=== PATIENT | female | born 1975 | race Caucasian/White ===

== ENCOUNTER 2019-05-26 22:04 | Emergency (ER) | payer MEDICARE, MEDICAID ==
[~2019-05-26] VITALS: Ht 162.6 cm; Wt 77.0 kg
[2019-05-26] MEDS ORDERED: VENTOLIN HFA18 GM INH (23:53)
[2019-05-26] MEDS ORDERED: BENZ100C PO (23:53)
[2019-05-26] MEDS ORDERED: AZIT250T PO (23:53)
--- NOTE | 2019-05-26 23:53 | PHYS DOC ---
Past Medical History Past Medical History: Asthma, Diabetes-Type I Past Surgical History: Hysterectomy, Other Smoking Status: Former Smoker Alcohol Use: Rarely Social History Narrative: cbd Adult General Chief Complaint Chief Complaint: COUGH HPI HPI Patient is a 44 year old non-smoking female with history of asthma, diabetes mellitus, PTSD and anxiety who presents with complaining of cough. Patient complaining of nonproductive cough for more than 1 month that usually happens at night and because pain in her back and throat with shortness of breath. Patient planing of subjective fever. Patient states she just moved to [place] from [place] and got Medicaid insurance and because of not having a primary care physician decided to come to ER. Review of Systems Review of Systems Constitutional: Denies fever or chills [] Eyes: Denies change in visual acuity, redness, or eye pain [] HENT: Denies nasal congestion, report sore throat [] Respiratory: Reports cough and shortness of breath Cardiovascular: No additional information not addressed in HPI [] GI: Denies abdominal pain, nausea, vomiting, bloody stools or diarrhea [] : Denies dysuria or hematuria [] Musculoskeletal: Denies back pain or joint pain [] Integument: Denies rash or skin lesions [] Neurologic: Denies headache, focal weakness or sensory changes [] Endocrine: Denies polyuria or polydipsia [] All other systems were reviewed and found to be within normal limits, except as documented in this note. Physical Exam Physical Exam Constitutional: Well developed, well nourished, mild distress, non-toxic appearance. [] HENT: Normocephalic, atraumatic, bilateral external ears normal, oropharynx moist, no oral exudates, nose normal. [] Eyes: PERRLA, EOMI, conjunctiva normal, no discharge. [] Neck: Normal range of motion, no tenderness, supple, no stridor. [] Cardiovascular:Heart rate regular rhythm, no murmur [] Lungs & Thorax: Bilateral breath sounds clear to auscultation [] Abdomen: Bowel sounds normal, soft, no tenderness, no masses, no pulsatile masses. [] Skin: Warm, dry, no erythema, no rash. [] Back: No tenderness, no CVA tenderness. [] Extremities: No tenderness, no cyanosis, no clubbing, ROM intact, no edema. [] Neurologic: Alert and oriented X 3, normal motor function, normal sensory function, no focal deficits noted. [] Psychologic: Affect anxious , judgement normal, mood normal. [] Current Patient Data Vital Signs Vital Signs Date Time Temp Pulse Resp B/P (MAP) Pulse Ox O2 Delivery O2 Flow Rate FiO2 05/26/19 22:58 98.4 84 14 136/92 (107) 98 Room Air 98.4 EKG EKG [] Radiology/Procedures Radiology/Procedures [] Course & Med Decision Making Course & Med Decision Making Evaluation of patient showed 44-year-old female patient with history of asthma and chronic cough for more than 1 month. Patient had unremarkable physical exam and stable vital signs without hypoxia. Patient was told to follow-up with the primary care physician and list of primary care physician was provided. I've spoken with the patient and/or caregivers. I've explained the patient's condition, diagnosis and treatment plan based on information available to me at this time. I've answered the patient's and/or caregivers questions and addressed any concerns. The patient and/or caregivers have a good understanding the carmencita gaitan's diagnosis, condition and treatment plan as can be expected at this point. Vital signs have been stabilized. The patient's condition is stable for discharge from the emergency department. The patient will pursue further outpatient evaluation with her primary care provider or other designated consulting physician as outlined in the discharge instructions. Patient and/or caregivers are agreeable to this plan of care and follow-up instructions have been explained in detail. The patient and/or caregivers have received these instructions in written format and expressed understanding of these discharge instructions. The patient and her caregivers are aware that if any significant change in condition or worsening of symptoms should prompt him to immediately return to this of the closest emergency department. If an emergent department is not readily available I would encourage him to call 911. Yaw Disclaimer Dragon Disclaimer This electronic medical record was generated, in whole or in part, using a voice recognition dictation system. Departure Departure Impression: Primary Impression: Asthma exacerbation Disposition: HOME, SELF-CARE (At 2340) Condition: STABLE Referrals: NO PCP (PCP) Patient Instructions: Asthma Attacks, Prevention, Asthma, Adult Additional Instructions: Drink plenty of liquids Follow-up with your primary care physician in 3-5 days Return to ER if not getting better Thank you for visiting [facility]. We appreciate you trusting us with your care. If any additional problems come up don't hesitate to return to visit us. Please follow up with your primary care provider so they can plan additional care if needed and know about the problem that you had. If symptoms worsen come back to the Emergency Department. Any concerning symptoms that start such as chest pain, shortness of air, weakness or numbness on one side of the body, running high fevers or any other concerning symptoms return to the ER. Scripts Albuterol Sulfate (VENTOLIN HFA INHALER) 18 Gm Hfa.aer.ad 2 PUFF INH QID for FOR ASTHMA, #1 INHALER 0 Refills Prov: JEROME MAYEN MD 05/26/19 Azithromycin (ZITHROMAX) 250 Mg Tablet 250 MG PO as directed for ANTI-BIOTIC, #6 TAB 0 Refills Take 2 PO x 1 days Then take 1 PO q 24 hour for the next 4 days Prov: JEROME MAYEN MD 05/26/19 Benzonatate (TESSALON PERLE) 100 Mg Capsule 1 CAP PO TID for cough, #21 CAP Prov: JEROME MAYEN MD 05/26/19 Problem Qualifiers Primary Impression: Asthma exacerbation Asthma severity: mild Asthma persistence: intermittent Qualified Codes: J45.21 - Mild intermittent asthma with (acute) exacerbation JEROME MAYEN MD May 26, 2019 23:53
[2019-05-27 00:15] VITALS: BP 104/68
== END 2019-05-27 00:39 | disposition home or self-care (01) ==
LOC: ER 22:04
DX: J45.21 Mild intermittent asthma with (acute) exacerbation (principal); R05 Cough; R07.0 Pain in throat; E10.9 Type 1 diabetes mellitus without complications; J45.909 Unspecified asthma, uncomplicated; Z90.710 Acquired absence of both cervix and uterus; Z98.890 Other specified postprocedural states; Z87.891 Personal history of nicotine dependence
CPT/HCPCS: 99283

== ENCOUNTER 2020-07-17 07:59 | Emergency (ER) | payer MEDICARE, MEDICAID ==
[~2020-07-17] VITALS: Ht 162.6 cm; Wt 81.8 kg
[~2020-07-17 07:59] MED LIST: AZIT250T PO; BENZ100C PO; VENTOLIN HFA18 GM INH
[2020-07-17 08:30] LABS: BILIRUBIN,URINE NEGATIVE (NEG); CLARITY,URINE CLEAR; COLOR,URINE YELLOW; NITRITE,URINE NEGATIVE (NEG); PROTEIN,URINE NEGATIVE (NEG-TRACE); UROBILINOGEN,URINE 0.2 mg/dL (0.2 mg/dL)
[2020-07-17 08:50] LABS: BACTERIA,URINE 0 /HPF (0-FEW); RBC,URINE 0 /HPF (0-2); WBC,URINE 0 /HPF (0-4)
[2020-07-17] MEDS ORDERED: IV NORMAL SALINE 1000ML BAG 1,000 ML IV ONE (09:00)
--- NOTE | 2020-07-17 09:03 | PHYS DOC ---
Past Medical History Past Medical History: Asthma, Diabetes-Type I Past Surgical History: Hysterectomy, Other Smoking Status: Former Smoker Alcohol Use: Rarely General Adult EDM: Chief Complaint: OTHER COMPLAINTS HPI: HPI: 45 yo female past medical history significant for insulin-dependent diabetes, asthma, ulcerative colitis and former tobacco use, presents the ED with multiple complaints stating " something systemic is going on, I am stressed out about my health." Reports history of Covid twice, wrist recent was in March of this year. Complains of left rib pain and left flank pain that has been present for the past 2 weeks. States 2 weeks ago she thought she had a stroke or heart attack because of a left-sided headache that radiated to both clavicles. Patient states her entire body hurts and she is surprised she is c ompliant with her insulin. Primary care physician is Dr. Leticia Giordano. Past surgical history of hysterectomy. Patient also reports she has had.. Is not on any medications for her ulcerative colitis-states Leticia Dewitt took her off of them. Denies any drug use including cocaine, methamphetamine or alcohol intake. Review of Systems: Review of Systems: Constitutional: Denies fever or chills. [] Eyes: Denies change in visual acuity. [] HENT: Denies nasal congestion or sore throat. [] Respiratory: Denies cough or shortness of breath or increased work of breathing Cardiovascular: Denies chest pain or edema or hemoptysis GI: Denies abdominal pain, nausea, vomiting, melena, hematochezia or hematemesis : Denies dysuria or vaginal bleeding or saddle anesthesia Musculoskeletal: Denies midline back pain or joint pain or leg swelling Integument: Denies rash diaphoresis Neurologic: Denies neck pain, focal weakness or sensory changes. [] Endocrine: Denies polyuria or polydipsia. [] Lymphatic: Denies swollen glands. [] Psychiatric: Denies depression or anxiety. [] Heart Score: C/O Chest Pain: No HEART Score for Chest Pain: HEART Score for Chest Pain Response (Comments) Value History Slighlty/Non-Suspicious 0 ECG Normal 0 Age >45 - < 65 1 Risk Factors 1 or 2 Risk Factors 1 Troponin < Normal Limit 0 Total 2 Risk Factors: Risk Factors: DM, Current or recent (<one month) smoker, HTN, HLP, family history of CAD, obesity. Risk Scores: Score 0 - 3: 2.5% MACE over next 6 weeks - Discharge Home Score 4 - 6: 20.3% MACE over next 6 weeks - Admit for Clinical Observation Score 7 - 10: 72.7% MACE over next 6 weeks - Early Invasive Strategies Allergies: Allergies: Allergies Coded Allergies Type Severity Reaction Last Updated Verified mold Adverse Reaction Intermediate N/V. "AFFECTS LUNGS" 07/17/20 Yes soy Adverse Reaction Intermediate MALAISE, MIGRAINE, N\\V 07/17/20 Yes Physical Exam: PE: Constitutional: Well developed, well nourished, no acute distress, non-toxic appearance, unkept appearance HENT: Normocephalic, atraumatic, dry mucous membranes, no pharyngeal erythema or exudates, no facial droop, clear speech Eyes: grace, EOMI, conjunctiva normal, no discharge. Neck: Normal range of motion, supple, Cardiovascular: S1/2 present, tachycardic at 103 Lungs & Thorax: Speaking in full sentences, bilateral equal chest rise, no tachypnea or increased work of breathing, "rib pain" is located over left lower anterior ribs - no ttp, Abdomen: soft, no tenderness, no rigidity or guarding Skin: Warm, dry, no erythema, no rash. [] Back: No midline tenderness, left CVA tenderness. [] Extremities: No tenderness, no cyanosis, no lower extremity edema Neurologic: Alert and oriented X 3, normal motor function, normal sensory function, no focal deficits noted. [] Psychologic: mood -very anxious with rapid speech, reasonable judgment Current Patient Data: Labs: Laboratory Tests Test 07/17/20 08:10 07/17/20 08:31 Urine Collection Type Unknown Urine Color Yellow Urine Clarity Clear Urine pH 6.0 (<5.0-8.0) Urine Specific [place] >=1.030 (1.000-1.030) Urine Protein Negative mg/dL (NEG-TRACE) Urine Glucose (UA) >=1000 mg/dL (NEG) Urine Ketones (Stick) >=80 mg/dL (NEG) Urine Blood Negative (NEG) Urine Nitrite Negative (NEG) Urine Bilirubin Negative (NEG) Urine Urobilinogen Dipstick 0.2 mg/dL (0.2 mg/dL) Urine Leukocyte Esterase Negative (NEG) Urine RBC 0 /HPF (0-2) Urine WBC 0 /HPF (0-4) Urine Squamous Epithelial Cells Few /LPF Urine Bacteria 0 /HPF (0-FEW) Glucose (Fingerstick) 259 mg/dL (70-99) H EKG: EKG: Sinus rhythm 97 bpm, no axis deviation, Q3, T3, no S in 1, normal intervals, no ST elevations or ST depressions Radiology/Procedures: Radiology/Procedures: IMAGING REPORT Signed PATIENT: XIOMY CESPEDES ACCOUNT: [id number] : 1975 LOCATION: ER AGE: 45 SEX: F EXAM STATUS: REG ER ORD. PHYSICIAN: SLICK MCKAY DO REASON: left rib pain PROCEDURE: CHEST AP ONLY EXAM: Chest, single view. HISTORY: Left rib pain. COMPARISON: None. FINDINGS: A frontal view of the chest is obtained. There is no infiltrate, pleural effusion or pneumothorax. The heart is normal in size. IMPRESSION: No acute pulmonary finding. Electronically signed by: Lena Cantu MD (07/17/2020 9:29 AM) [id number] DICTATED and SIGNED BY: LENA CANTU MD DATE: 07/17/20 [id number] 0 Course & Med Decision Making: Course & Med Decision Making Pertinent Labs and Imaging studies reviewed. (See chart for details) Concern for multiple complaints, anxiety regarding health - left anterior rib pain x 2 days, left flank pain, concern for cva and ami. Patient low risk heart score. D-dimer within normal limits. Tachycardia resolved in ED, blood pressure within normal limits. Patient is well-appearing. Patient with no SI or HI. Does have methamphetamine and marijuana on board. Urine shows ketonuria with no signs of infection. Patient is clinically dehydrated. Labs with hyperglycemia but no anion gap. Will discharge home with strict ED return precautions were given for signs abuse, suicidal or homicidal ideations, chest pain, dyspnea, neurologic deficits or trauma. Encouraged urgent outpatient follow-up with PMD diabetes management and [facility]SI for substance abuse treatment. Life-threatening processes were considered but are low suspicion at this time, given history, physical exam and ED workup. Pt was educated on all prescription medications and adverse effects. All patient's questions were answered and pt was stable at time of discharge. Life/limb-threatening differential includes but is not limited to, end organ damage/sepsis, trauma/abuse/neglect, neurologic deficit, alcohol/drug ingestion, toxidrome, suicidal/homicidal ideations plans or attempts, psychosis or mental illness resulting in self neglect and inability to care for self. I spoken with the patient and her caregivers. I explained the patient's condition, diagnoses and treatment plan based on the information available to me at this time. I have answered the patient and her caregiver's questions and addressed any concerns. The patient and her caregivers have a good understanding of patient's diagnosis, condition and treatment plan as can be expected at this point. Vital signs have been stable. Patient's condition is stable and appropriate for discharge from the emergency department. Patient will pursue further outpatient evaluation with primary care physician or other designated or consulting physician as outlined in the discharge instructions. The patient and/or caregivers are agreeable to this plan of care and follow-up instructions have been explained in detail. The patient and/or caregivers have received these instructions in written form and have expressed an understanding of the discharge instructions. The patient and/or caregivers are aware that any significant change of condition or worsening of symptoms should prompt immediate return to this or the closest emergency department or call to 450. Yaw Disclaimer: Yaw Disclaimer: This electronic medical record was generated, in whole or in part, using a voice recognition dictation system. Departure Departure Impression: Primary Impression: Polysubstance abuse Additional Impressions: Ketonuria Dehydration Anxiety about health Disposition: HOME / SELF CARE / HOMELESS Condition: STABLE Referrals: NO PCP (PCP) Follow-up with your primary care physician in the next 2 to 5 days for reevaluation or FOLLOW UP WITH FAMILY MEDICINE: Family Medicine Address: [address] [place] [address], [address] [place], [place] [address] Patient Instructions: Anxiety and Panic Attacks, Dehydration, Adult, Methamphetamine Abuse, Complications Additional Instructions: makerSQR -for substance abuse and rehab 10/10 crisis stabilization services [address] [place] [address] EMERGENCY DEPARTMENT GENERAL DISCHARGE INSTRUCTIONS Thank you for coming to [facility] Emergency Department (ED) today and trusting us with you care. We trust that you had a positive experience in our Emergency Department. If you wish to speak to the department management, you may call the Director at [phone]. YOUR FOLLOW UP INSTRUCTIONS ARE FOLLOWS: 1. Do you have a private Doctor? If you do not have a private doctor, please ask for a resource list of physicians or clinics that may be able to assist you with follow up care. 2. The Emergency Physicain has interpreted your x-rays. The X-Ray specialist will also review them. If there is a change in the findings, you will be notified in 48 hours when at all possible. 3. A lab test or culture has been done, your results will be reviewed and you will be notified if you need a change in treatment. ADDITIONAL INSTRUCTIONS AND INFORMATION: 1. Your care today has been supervised by a physician who is specially trained in emergency care. Many problems require more than one evaluation for a complete diagnosis and treatment. We recommend that you schedule your follow up appointment as recommended to ensure complete treatment of you illness or injury. If you are unable to obtain follow up care and continue to have a problem, or if your condition worsens, we recommend that you return to the ED. 2. We are not able to safely determine your condition over the phone nor are we able to give sound medical advice over the phone. For these safety reasons, if you call for medical advice we will ask you to come to the ED for further evaluation. 3. If you have any questions regarding these discharge instructions please call the ED at [phone]. SAFETY INFORMATION: In the interest of safety, wellness, and injury prevention; we encourage you to wear your sealbelt, if you smoke; quite smoking, and we encourage family to use a protective helmet for bicycling and other sporting events that present an increased risk for head injury. IF YOUR SYMPTOMS WORSEN OR NEW SYMPTOMS DEVELOP, OR YOU HAVE CONCERNS ABOUT YOUR CONDITION; OR IF YOUR CONDITION WORSENS WHILE YOU ARE WAITING FOR YOUR FOLLOW UP APPOINTMENT; EITHER CONTACT YOUR PRIMARY CARE DOCTOR, THE PHYSICIAN WHOSE NAME AND NUMBER YOU WERE GIVEN, OR RETURN TO THE ED IMMEDIATELY. Scripts Hydroxyzine Hcl (HYDROXYZINE HCL) 25 Mg Tablet 1 TAB PO TID for anxiety, #20 TAB Prov: SLICK MCKAY DO 07/17/20 SLICK MCKAY DO Jul 17, 2020 09:03
[2020-07-17 09:12] LABS: BASO % 0 % (0-3); EOS # 0.1 x10^3/uL (0.0-0.7); EOS % 1 % (0-3); HEMATOCRIT 41.1 % (36.0-47.0); HEMOGLOBIN 14.2 g/dL (12.0-15.5); LYMPH # 1.9 x10^3/uL (1.0-4.8); LYMPH % 22 % (24-48); MEAN CORPUSCULAR HEMOGLOBIN 31 pg (25-35); MEAN CORPUSCULAR HGB CONC 35 g/dL (31-37); MEAN CORPUSCULAR VOLUME 89 fL (79-100); MONO # 0.7 x10^3/uL (0.0-1.1); MONO % 8 % (0-9); NEUT # 5.8 x10^3/uL (1.8-7.7); NEUT % 68 % (31-73); PLATELET COUNT 257 x10^3/uL (140-400); RED CELL DISTRIBUTION WIDTH 12.7 % (11.5-14.5); WHITE BLOOD COUNT 8.6 x10^3/uL (4.0-11.0)
[2020-07-17 09:24] LABS: CALCIUM 8.5 mg/dL (8.5-10.1); CREATININE 0.7 mg/dL (0.6-1.0); GFR 90.1; POTASSIUM 4.1 mmol/L (3.5-5.1)
--- NOTE | 2020-07-17 09:32 | RAD ---
EXAM: Chest, single view. HISTORY: Left rib pain. COMPARISON: None. FINDINGS: A frontal view of the chest is obtained. There is no infiltrate, pleural effusion or pneumo thorax. The heart is normal in size. IMPRESSION: No acute pulmonary finding. Electronically signed by: Lena Sethi MD (07/17/2020 9:29 AM) [id number]
[2020-07-17 09:35] LABS: ALBUMIN 4.1 g/dL (3.4-5.0); DIRECT BILIRUBIN 0.1 mg/dL (0.0-0.2); TOTAL PROTEIN 7.5 g/dL (6.4-8.2)
[2020-07-17 10:26] LABS: BARBITURATES NEG (NEG); BENZODIAZEPINES NEG (NEG); CANNABINOIDS POS (NEG); COCAINE NEG (NEG); METHADONE NEG (NEG); OPIATES NEG (NEG); PHENCYCLIDINE NEG (NEG)
[2020-07-17 10:27] LABS: AMPHETAMINE/METHAMPHETAMINE POS (NEG)
[2020-07-17 10:42] LABS: U PREG PATIENT NEGATIVE (NEG)
[2020-07-17 10:59] VITALS: BP 103/66
--- NOTE | 2020-07-17 11:02 | EKG ---
[facility] [address] [place] [address] Test Date: 2020-07-17 Test Time: 09:33:16 Pat Name: XIOMY CESPEDES Department: Room: Gender: F Clinic Supervisor: : 1975 Requested By: SLICK MCKAY Order Number: [id number] Reading MD: Measurements Intervals [place] Rate: 97 P: 31 IN: 142 QRS: 2 QRSD: 76 T: 10 QT: 356 QTc: 456 Interpretive Statements SINUS RHYTHM NO SPECIFIC ECG ABNORMALITIES RI6.01 No previous ECG available for comparison
[2020-07-17] MEDS ORDERED: HYDR25TA PO (11:11)
== END 2020-07-17 11:23 | disposition home or self-care (01) ==
LOC: ER 07:59
DX: F19.10 Other psychoactive substance abuse, uncomplicated (principal); R82.4 Acetonuria; E86.0 Dehydration; F41.9 Anxiety disorder, unspecified; R51.9 Headache, unspecified; E11.9 Type 2 diabetes mellitus without complications; J45.909 Unspecified asthma, uncomplicated; Z87.891 Personal history of nicotine dependence; Z86.73 Personal history of transient ischemic attack (TIA), and cerebral infarction without residual deficits; Z90.710 Acquired absence of both cervix and uterus
CPT/HCPCS: 36415; 71045; 80048; 80076; 80307; 81001; 81025; 82962; 85025; 85379; 93005; 96360; 99285; J7030